=== PATIENT | male | born 1985 | race Two or more races ===

== ENCOUNTER 2024-07-28 17:23 | Emergency (ER) | payer OTHER ==
[~2024-07-28] VITALS: Ht 180.3 cm; Wt 90.7 kg
[2024-07-28] MEDS ORDERED: BUTALB/ACETAMINOPHEN/CAFFEINE 1 TAB TABLET PO ONE ×2 (18:15→19:15)
[2024-07-28 19:30] LABS: BASO % 0.7 % (0.1-1.2); EOS # 0.35 (0.04-0.54); EOS % 4.6 % (0.7-7.0); HEMOGLOBIN 14.3 g/dL (13.7-17.5); LYMPH # 2.77 (1.18-3.74); LYMPH % 36.4 % (19.3-53.1); MEAN CORPUSCULAR HEMOGLOBIN 31.1 pg (25.6-32.2); MONO # 0.61 (0.24-0.82); NEUT # 3.83 (1.56-6.13); NEUT % 50.2 % (34.0-71.1); PLATELET COUNT 249 K/uL (163-369); RED CELL DISTRIBUTION WIDTH 12.1 % (11.6-14.4)
[2024-07-28 19:45] LABS: PH,URINE 6.5 (5.0-8.0); URINE APPEARANCE Clear; URINE BILIRRUBIN Negative (NEGATIVE); URINE BLOOD Negative; URINE COLOR Yellow; URINE GLUCOSE Negative (NEGATIVE); URINE KETONE Trace (NEGATIVE); URINE LEUKOCYTE Negative; URINE NITRATE Negative; URINE PROTEIN Negative (NEGATIVE)
[2024-07-28 19:49] LABS: URINE RBC 3.6 uL (0.0-20.8)
[2024-07-28 19:51] LABS: ALBUMIN 4.1 gm/dL (3.4-5.0); BILIRUBIN TOTAL 1.45 mg/dL (0.3-1.2); CALCIUM 9.1 mg/dL (8.5-10.1); CREATININE SERUM 1.19 mg/dL (0.70-1.30); GFR 68.42; POTASSIUM 4.28 mEq/L (3.5-5.1); TOTAL PROTEIN 7.1 gm/dL (6.4-8.2)
[2024-07-28 20:01] LABS: URINE BACTERIA 1.2 uL (0.0-1933); URINE EPITHELIAL CELLS 0.1 uL (0.0-38.8); URINE WBC 0.7 uL (0.0-23.2)
== END 2024-07-28 21:34 | disposition home or self-care (01) ==
LOC: ER 18:06
PROVIDERS: Emergency Medicine
DX: K40.90 Unilateral inguinal hernia, without obstruction or gangrene, not specified as recurrent (principal); N43.3 Hydrocele, unspecified

== ENCOUNTER 2024-12-17 09:00 | Day surgery (SDC) | payer OTHER ==
[2024-12-09 11:51] VITALS: BP 116/78
[2024-12-09 12:05] LABS: BASO % 0.5 % (0.1-1.2); EOS # 0.31 (0.04-0.54); EOS % 5.2 % (0.7-7.0); LYMPH # 2.27 (1.18-3.74); LYMPH % 38.0 % (19.3-53.1); MEAN PLATELET VOLUME 11.40 fl (9.4-12.4); MONO # 0.54 (0.24-0.82); MONO % 9.0 % (4.7-12.5); NEUT # 2.81 (1.56-6.13); NEUT % 47.1 % (34.0-71.1); RED CELL DISTRIBUTION WIDTH 11.9 % (11.6-14.4)
[2024-12-09 12:08] LABS: URINE APPEARANCE Clear; URINE BILIRRUBIN Negative (NEGATIVE); URINE BLOOD Negative; URINE COLOR Yellow; URINE GLUCOSE Negative (NEGATIVE); URINE KETONE Negative (NEGATIVE); URINE LEUKOCYTE Negative; URINE NITRATE Negative; URINE PROTEIN Trace (NEGATIVE); URINE UROBILINOGEN 0.2 E.U./dl
[2024-12-09 12:13] LABS: URINE EPITHELIAL CELLS 2.5 uL (0.0-38.8); URINE RBC 5.8 uL (0.0-20.8); URINE WBC 2.9 uL (0.0-23.2)
[2024-12-09 12:17] LABS: URINE BACTERIA 3.5 uL (0.0-1933); URINE CAST 0.00 uL (0.0-1.40)
[2024-12-09 12:29] LABS: INR 0.98
[2024-12-09 12:50] LABS: ALT/SGPT 22.0 U/L (12-78); AST/SGOT 15.0 U/L (15-37); BILIRUBIN TOTAL 2.22 mg/dL (0.3-1.2); BUN CREA RATIO 23.0 (7.0-25.0); CREATININE SERUM 0.95 mg/dL (0.70-1.30); GFR 88.72; GLOBULINA 2.5 G/DL (2.4-3.5); GLUCOSE FASTING 90.0 mg/dL (65-100); OSMOLALITY SERUM 288.0 MOSM/KG (275-295)
[~2024-12-17] VITALS: Ht 180.3 cm; Wt 94.3 kg
[2024-12-17] MEDS ORDERED: CEFAZOLIN SODIUM 1,000 MG VIAL ONE (10:12)
== END 2024-12-17 19:40 | disposition home or self-care (01) ==
LOC: CIR.AMB 09:00
PROVIDERS: ATTEND Surgery
DX: K40.30 Unilateral inguinal hernia, with obstruction, without gangrene, not specified as recurrent (principal)

== ENCOUNTER 2024-12-27 18:15 | Emergency (ER) | payer OTHER ==
[~2024-12-27] VITALS: Ht 180.3 cm; Wt 89.4 kg
== END 2024-12-27 23:10 | disposition home or self-care (01) ==
LOC: ER 18:16
DX: T14.8XXA Other injury of unspecified body region, initial encounter (principal)